=== PATIENT | female | born 1935 | race Two or more races ===

== ENCOUNTER 2018-12-19 13:34 | Outpatient (CLI) | payer OTHER | END 2018-12-19 14:11 | disposition home or self-care (01) | LOC: MAMO-SONO 13:34 | DX: Z12.31 Encounter for screening mammogram for malignant neoplasm of breast (principal); Z87.898 Personal history of other specified conditions; N61.0 Mastitis without abscess ==

== ENCOUNTER 2021-09-09 09:00 | Outpatient (CLI) | payer OTHER | END 2021-09-09 09:30 | disposition home or self-care (01) | LOC: PPH VACUNA 09:00 | PROVIDERS: ATTEND Emergency Medicine Pediatric Emergency Medicine | DX: Z23 Encounter for immunization (principal) ==

== ENCOUNTER 2021-11-29 13:21 | Emergency (ER) | payer OTHER ==
[~2021-11-29] VITALS: Ht 152.4 cm; Wt 63.5 kg
[2021-11-29] MEDS ORDERED: MULTI VITAMIN1 EACH (14:11)
[2021-11-29] MEDS ORDERED: ZYRTEC10 M3 (14:11)
[2021-11-29] MEDS ORDERED: ZITHROMAX200 MG PO (14:37)
[2021-11-29] MEDS ORDERED: TUSSI PRES-B L480 ML PO (14:37)
== END 2021-11-29 14:44 | disposition home or self-care (01) ==
LOC: ER 13:21
DX: R05.9 Cough, unspecified (principal)

== ENCOUNTER 2022-10-12 14:34 | Emergency (ER) | payer OTHER ==
[~2022-10-12] VITALS: Ht 167.6 cm; Wt 63.5 kg
[~2022-10-12 14:34] MED LIST: MULTI VITAMIN1 EACH; TUSSI PRES-B L480 ML PO; ZITHROMAX200 MG PO; ZYRTEC10 M3
== END 2022-10-12 18:52 | disposition home or self-care (01) ==
LOC: ER 14:34
DX: S42.351A Displaced comminuted fracture of shaft of humerus, right arm, initial encounter for closed fracture (principal); W19.XXXA Unspecified fall, initial encounter; Y93.89 Activity, other specified; Y92.59 Other trade areas as the place of occurrence of the external cause; Y99.9 Unspecified external cause status; M25.511 Pain in right shoulder